=== PATIENT | male | born 1965 | race Two or more races ===

== ENCOUNTER 2019-02-23 15:01 | Emergency (ER) | payer SELFPAY ==
--- NOTE | 2019-02-23 15:36 | ER Document Report ---
ED Medical Screen (RME) - General Chief Complaint: Abdominal Pain Stated Complaint: BACK/ABDOMIN PAIN Time Seen by Provider: 02/23/19 15:31 Primary Care Provider: MARQUITA FONG [Primary Care Provider] - Follow up as needed Mode of Arrival: Ambulatory Information source: Patient Notes: 54-year-old male presents to the emergency department for right-sided flank pain right-sided pain for months. Patient reports he has been evaluated in [place] and been seen by a chiropractor he is also been evaluated by [facility]. He presents with labs from October. Denies past medical history of kidney stones. Speaks Czech but reports he understands South African. I have greeted and performed a rapid initial assessment of this patient. A comprehensive ED assessment and evaluation of the patient, analysis of test results and completion of the medical decision making process will be conducted by additional ED providers. Dictation of this chart was performed using voice recognition software; therefore, there may be some unintended grammatical errors. TRAVEL OUTSIDE OF THE [place] IN LAST 30 DAYS: No - Related Data Allergies/Adverse Reactions: No Known Allergies Allergy (Unverified 02/23/19 15:02) Physical Exam - Vital signs Vitals: Temp Pulse Resp BP Pulse Ox 99.1 F 89 18 157/90 H 96 02/23/19 15:14 02/23/19 15:14 02/23/19 15:14 02/23/19 15:14 02/23/19 15:14 Course - Vital Signs Vital signs: Temp Pulse Resp BP Pulse Ox 99.1 F 89 18 157/90 H 96 02/23/19 15:14 02/23/19 15:14 02/23/19 15:14 02/23/19 15:14 02/23/19 15:14 Doctor's Discharge - Discharge Referrals: MARQUITA FONG [Primary Care Provider] - Follow up as needed
[2019-02-23 15:56] LABS: ABSOLUTE BASOPHILS # (AUTO) 0.1 10^3/uL (0.0-0.2); ABSOLUTE EOSINOPHILS # (AUTO) 0.3 10^3/uL (0.0-0.6); ABSOLUTE LYMPHOCYTES (AUTO) 3.3 10^3/uL (0.5-4.7); ABSOLUTE MONOCYTES (AUTO) 0.4 10^3/uL (0.1-1.4); ABSOLUTE NEUT (AUTO) 4.3 10^3/uL (1.7-8.2); BASOPHILS % (AUTO) 0.6 % (0-2); EOSINOPHILS % (AUTO) 3.4 % (0-6); HEMATOCRIT 43.2 % (37.9-51.0); HEMOGLOBIN 15.2 g/dL (13.5-17.0); LYMPHOCYTES % (AUTO) 38.9 % (13-45); MEAN CORPUSCULAR HEMOGLOBIN 29.9 pg (27.0-33.4); MEAN CORPUSCULAR HGB CONC 35.3 g/dL (32.0-36.0); MEAN CORPUSCULAR VOLUME 85 fl (80-97); MONOCYTES % (AUTO) 5.3 % (3-13); PLATELET COUNT 335 10^3/uL (150-450); RED CELL DISTRIBUTION WIDTH 13.5 % (11.5-14.0); SEGMENTED NEUTROPHILS % (AUTO) 51.8 % (42-78); TOTAL CELLS COUNTED % (AUTO) 100 %; WHITE BLOOD COUNT 8.4 10^3/uL (4.0-10.5)
[2019-02-23 16:00] LABS: APPEARANCE,URINE CLEAR; BILIRUBIN,URINE NEGATIVE (NEGATIVE); COLOR,URINE YELLOW; GLUCOSE, URINE 150 mg/dL (NEGATIVE); KETONES,URINE NEGATIVE (NEGATIVE); LEUKOCYTE ESTERASE,URINE NEGATIVE (NEGATIVE); NITRITE,URINE NEGATIVE (NEGATIVE); PROTEIN,URINE NEGATIVE (NEGATIVE); URINE SPECIFIC GRAVITY 1.023; UROBILINOGEN,URINE NEGATIVE mg/dL (<2.0)
[2019-02-23 16:19] LABS: ALBUMIN 4.6 g/dL (3.5-5.0); ALKALINE PHOSPHATASE 114 U/L (38-126); ANION GAP 9 (5-19); ASPARTATE AMINO TRANSFERASE 51 U/L (17-59); BILIRUBIN,DIRECT 0.2 mg/dL (0.0-0.4); BILIRUBIN,TOTAL 0.5 mg/dL (0.2-1.3); BLOOD UREA NITROGEN 15 mg/dL (7-20); CALCIUM 9.9 mg/dL (8.4-10.2); CARBON DIOXIDE 27 mmol/L (22-30); CHLORIDE 101 mmol/L (98-107); GLUCOSE 194 mg/dL (75-110); POTASSIUM 4.3 mmol/L (3.6-5.0); TOTAL PROTEIN 7.7 g/dL (6.3-8.2)
--- NOTE | 2019-02-23 18:08 | ER Document Report ---
ED GI/ - General Chief Complaint: Abdominal Pain Stated Complaint: BACK/ABDOMIN PAIN Time Seen by Provider: 02/23/19 15:31 Primary Care Provider: MARQUITA FONG [NO LOCAL MD] - Follow up as needed Mode of Arrival: Ambulatory Information source: Patient Notes: 54-year-old male presented to ED for complaint of right-sided flank pain for about 2-1/2 months. He states he has been seen by a chiropractor [facility]. He states he had labs in October which everybody told were okay. He denies any history of injuries or kidney stones. He does speak Ecuadorean so I used [employer] satellite dish installer [id number] to do his assessment and history. Patient is alert oriented respirations regular and unlabored speaking in full sentences. TRAVEL OUTSIDE OF THE [place] IN LAST 30 DAYS: No - HPI Patient complains to provider of: Flank pain Onset: Other - 2-1/2 months Timing/Duration: Persistent Quality of pain: Achy, Dull Severity at maximum: Severe Severity in ED: Moderate Pain Level: 3 - Is good to help is Location: Right flank Associated symptoms: denies: Nausea, Vomiting Exacerbated by: Movement, Walking Relieved by: Denies Similar symptoms previously: Yes Recently seen / treated by doctor: Yes - Related Data Allergies/Adverse Reactions: No Known Allergies Allergy (Unverified 02/23/19 15:02) Past Medical History - General Information source: Patient - Social History Smoking Status: Never Smoker Frequency of alcohol use: None Drug Abuse: None Lives with: Family Family History: Reviewed & Not Pertinent Patient has suicidal ideation: No Patient has homicidal ideation: No - Past Medical History Cardiac Medical History: Reports: None Pulmonary Medical History: Reports: None EENT Medical History: Reports: None Neurological Medical History: Reports: None Endocrine Medical History: Reports: None Renal/ Medical History: Reports: None Malignancy Medical History: Reports None GI Medical History: Reports: None Musculoskeletal Medical History: Reports None Skin Medical History: Reports None Psychiatric Medical History: Reports: None Traumatic Medical History: Reports: None Infectious Medical History: Reports: None Surgical Hx: Negative Past Surgical History: Reports: None - Immunizations Immunizations up to date: Yes Hx Diphtheria, Pertussis, Tetanus Vaccination: Yes Review of Systems - Review of Systems Constitutional: No symptoms reported EENT: No symptoms reported Cardiovascular: No symptoms reported Respiratory: No symptoms reported Gastrointestinal: Abdominal pain Genitourinary: Flank pain Male Genitourinary: No symptoms reported Musculoskeletal: No symptoms reported Skin: No symptoms reported Hematologic/Lymphatic: No symptoms reported Neurological/Psychological: No symptoms reported Physical Exam - Vital signs Vitals: Temp Pulse Resp BP Pulse Ox 99.1 F 89 18 157/90 H 96 02/23/19 15:14 02/23/19 15:14 02/23/19 15:14 02/23/19 15:14 02/23/19 15:14 Interpretation: Normal - General General appearance: Appears well, Alert - HEENT Head: Normocephalic, Atraumatic Eyes: Normal Pupils: PERRL - Respiratory Respiratory status: No respiratory distress Chest status: Nontender Breath sounds: Normal Chest palpation: Normal - Cardiovascular Rhythm: Regular Heart sounds: Normal auscultation Murmur: No - Abdominal Inspection: Normal Distension: No distension Bowel sounds: Hyperactive Tenderness: Tender - ruq Organomegaly: No organomegaly - Back Back: Normal, Tender, CVA tenderness - right - Extremities General upper extremity: Normal inspection, Nontender, Normal color, Normal ROM, Normal temperature General lower extremity: Normal inspection, Nontender, Normal color, Normal ROM, Normal temperature, Normal weight bearing. No: Rock's sign - Neurological Neuro grossly intact: Yes Cognition: Normal Orientation: AAOx4 Tom Coma Scale Eye Opening: Spontaneous Marshall Coma Scale Verbal: Oriented Tom Coma Scale Motor: Obeys Commands Tom Coma Scale Total: 15 Speech: Normal Motor strength normal: LUE, RUE, LLE, RLE Sensory: Normal - Psychological Associated symptoms: Normal affect, Normal mood - Skin Skin Temperature: Warm Skin Moisture: Dry Skin Color: Normal Course - Re-evaluation Re-evalutation: 02/24/19 01:58 Using [employer] satellite dish installer to give patient results of labs and CT before he was discharged. There was no kidney stones. It is muscle pain. I did discuss his blood sugar and his need to follow-up with her primary doctor concerning his prashant vated blood sugar. He did verbalize understanding of need to change diet to decrease carb hydrates. He was discharged home after he verbalized understanding of instructions. - Vital Signs Vital signs: Temp Pulse Resp BP Pulse Ox 98.4 F 72 16 116/78 96 02/23/19 20:43 02/23/19 20:43 02/23/19 20:43 02/23/19 20:43 02/23/19 15:14 - Laboratory Result Diagrams: 02/23/19 15:45 02/23/19 15:45 Laboratory results interpreted by me: 02/23/19 02/23/19 02/23/19 15:45 15:45 17:30 Glucose 194 H Hemoglobin A1c % 6.3 H Urine Glucose (UA) 150 H - Diagnostic Test Radiology reviewed: Image reviewed, Reports reviewed Discharge - Discharge Clinical Impression: Right flank pain, chronic Condition: Stable Disposition: HOME, SELF-CARE Instructions: Acetaminophen, Diabetes (OM), Family Physicians / Practices, Flank Pain (OM), Use of [id number]-Gkybvao Ibuprofen ([facility]), Myalagia (Muscle Pain) (OM) Additional Instructions: Flank Pain We weren't able to prove an exact cause for your flank pain. Pain in the flank can be caused by a muscle strain or spasm. Sometimes a kidney stone causes pain, but can't be found on our tests. Infection in the kidney should be evident on a urine test. Early shingles can occasionally cause flank pain, without the rash that proves the diagnosis. On rare occasions, disease of the pancreas, aorta, spleen, or colon can create pain in the flank. At this time, there's no evidence of a dangerous condition, and it seems safe for you to be at home. If the pain goes away and does not come back, no further testing will be needed. If pain persists, or becomes more severe, we may need to repeat some tests or order additional new testing. Blood in the urine, urgency to urinate frequently, and pain that radiates to the groin can indicate a kidney stone. Fever may mean that the pain is due to infection, either of the kidney or the colon (diverticulitis). If your pain is early shingles, you should develop an eruption of blisters in the painful area within a few days. Call the doctor or return if you have pain that is spreading or becoming more severe, pain that does not resolve with time, fever, or any other new symptoms. Ibuprofen Ibuprofen is an excellent, safe drug for pain control. In addition, it has potent antiinflammatory effects which are beneficial, especially in the treatment of injuries, arthritis, or tendonitis. It's best to take ibuprofen with food. Persons with ulcer disease or allergy to aspirin should notify their physician of this before taking ibuprofen. Take the medication exactly as prescribed. Don't take additional doses unless instructed to do so by your doctor. If you develop wheezing, shortness of breath, hives, faintness, stomach pain, vomiting, or dark black stools, return for re-evaluation at once. Acetaminophen Acetaminophen may be taken for pain relief or fever control. It's much safer than aspirin, offering a wider range of "safe" dosages. It is safe during . Some brand names are Tylenol, Panadol, Datril, Anacin 3, Tempra, and Liquiprin. Acetaminophen can be repeated every four hours. The following are maximum recommended dosages: WEIGHT Dose Drops Elixir Chewable(80mg) (LBS.) drprs=droppers tsp=teaspoon 6 40 mg .4 ml (1/2) 6-11 80 mg .8 ml (full) 1/2 tsp 1 tab 12-16 120 mg 1 1/2 drprs 3/4 tsp 1 1/2 tabs 17-23 160 mg 2 drprs 1 tsp 2 tabs 24-30 240 mg 3 drprs 1 1/2 tsp 3 tabs 30-35 320 mg 2 tsp 4 tabs 36-41 360 mg 2 1/4 tsp 4 1/2 tabs 42-47 400 mg 2 1/2 tsp 5 tabs 48-53 480 mg 3 tsp 6 tabs 54-59 520 mg 3 1/4 tsp 6 1/2 tabs 60-64 560 mg 3 1/2 tsp 7 tabs 65-70 600 mg 3 3/4 tsp 7 1/2 tabs 71-76 640 mg 4 tsp 8 tabs 77-82 720 mg 4 1/2 tsp 9 tabs 83-88 800 mg 5 tsp 10 tabs >89 pounds or adults 650 mg to 900 mg Acetaminophen can be repeated every four hours. Maximum daily dose not to exceed 4000 mg. These maximum recommended dosages are slightly higher than the dosages written on the product container, but these dosages are very safe and well below the toxic dosage for acetaminophen. FOLLOW-UP CARE: If you have been referred to a physician for follow-up care, call the physicians office for an appointment as you were instructed or within the next two days. If you experience worsening or a significant change in your symptoms, notify the physician immediately or return to the Emergency Department at any time for re-evaluation. Referrals: LOCALMD,NO [NO LOCAL MD] - Follow up as needed Print Language: Ecuadorean
--- NOTE | 2019-02-23 19:08 | RADIOLOGY REPORT (SQ) ---
EXAM DESCRIPTION: U/S ABDOMEN LIMITED W/O DOP COMPLETED DATE/TIME: 02/23/2019 6:58 pm REASON FOR STUDY: rt upper quad pain COMPARISON: None. TECHNIQUE: Dynamic and static grayscale images acquired of the abdomen and recorded on PACS. Additio nal selected color Doppler and spectral images recorded. LIMITATIONS: None. FINDINGS: PANCREAS: Poorly seen. LIVER: Increased echogenicity. No masses. LIVER VASCULATURE: Normal directional flow of the main portal vein and hepatic veins. GALLBLADDER: No stones. Normal wall thickness. No pericholecystic fluid. ULTRASOUND-DETECTED ALFARO'S SIGN: Negative. INTRAHEPATIC DUCTS AND COMMON DUCT: CBD and intrahepatic ducts normal caliber. No filling defects. INFERIOR VENA CAVA: Normal flow. AORTA: No aneurysm. The proximal aorta is not seen. RIGHT KIDNEY: Normal size, 12.4 cm. Normal echogenicity. No solid or suspicious masses. No hydroneph rosis. No calcifications. PERITONEAL AND RIGHT PLEURAL SPACE: No ascites or effusions. OTHER: No other significant findings. IMPRESSION: Hepatic steatosis. Normal gallbladder. TECHNICAL DOCUMENTATION: JOB ID: [id number] [employer]- All Rights Reserved Reading location - IP/workstation name: [email or web address]
[2019-02-23 20:46] VITALS: BP 116/78
== END 2019-02-23 20:43 | disposition home or self-care (01) ==
LOC: ER 15:01
DX: M79.18 Myalgia, other site (principal); G89.29 Other chronic pain; R10.811 Right upper quadrant abdominal tenderness; R73.9 Hyperglycemia, unspecified
CPT/HCPCS: 36415; 76705; 80053; 81001; 83036; 83690; 85025; 99284

== ENCOUNTER 2019-11-04 15:00 | Emergency (ER) | payer SELFPAY ==
[2019-11-04 20:47] VITALS: BP 135/81
--- NOTE | 2019-11-04 21:07 | ER Document Report ---
HPI - HPI Time Seen by Provider: 11/04/19 20:25 Pain Level: Denies Notes: 54, patient presented to the emergency department with chief complaint of cough. Patient reports cough for the last 3 days. Denies any fever, shortness of breath, nausea, vomiting or diarrhea. He reports that he coughs so much that it makes his abdomen hurt. He denies any specific abdominal pain at this time. He does report that he travels weekly for work. He denies any sick contacts, d enies any exposure to any known COVID-19 positive patients. He resides in [facility]. He has not taken any medications for symptoms. - EENT EENT: DENIES: Sore Throat, Ear Pain, Eye problems - NEURO Neurology: DENIES: Headache, Weakness, Vision blurred, Dizzinesss / Vertigo - CARDIOVASCULAR Cardiovascular: DENIES: Chest pain - RESPIRATORY Respiratory: REPORTS: Coughing. DENIES: Trouble Breathing - GASTROINTESTINAL Gastrointestinal: REPORTS: Abdominal Pain - when coughing. DENIES: Black / Bloody Stools - URINARY Urinary: DENIES: Dysuria, Urgency, Frequency - MUSCULOSKELETAL Musculoskeletal: DENIES: Extremity pain Past Medical History - General Information source: Patient - Social History Smoking Status: Never Smoker Frequency of alcohol use: None Drug Abuse: None Family History: Reviewed & Not Pertinent Patient has homicidal ideation: No - Medical History Medical History: Negative Surgical Hx: Negative - Immunizations Immunizations up to date: Yes Hx Diphtheria, Pertussis, Tetanus Vaccination: Yes Vertical Provider Document - CONSTITUTIONAL Notes: PHYSICAL EXAMINATION: GENERAL: Well-appearing, well-nourished and in no acute distress. HEAD: Atraumatic, normocephalic. EYES: Pupils equal round and reactive to light, extraocular movements intact, sclera anicteric, conjunctiva are normal. ENT: Nares patent, oropharynx clear without exudates. Moist mucous membranes. NECK: Normal range of motion, supple without lymphadenopathy LUNGS: Breath sounds clear to auscultation bilaterally and equal. No wheezes rales or rhonchi. HEART: Regular rate and rhythm without murmurs ABDOMEN: Soft, nontender, nondistended abdomen. No guarding, no rebound. No masses appreciated. Musculoskeletal: Normal range of motion, no pitting or edema. No cyanosis. NEUROLOGICAL: Cranial nerves grossly intact. Normal speech, normal gait. Normal sensory, motor exams PSYCH: Normal mood, normal affect. SKIN: Warm, Dry, normal turgor, no rashes or lesions noted. - INFECTION CONTROL TRAVEL OUTSIDE OF THE [place] IN LAST 30 DAYS: No Course - Re-evaluation Re-evalutation: Patient appears well, nontoxic, vital signs within normal limits. Lung sounds clear and equal bilaterally. Patient will be started on Tessalon Perles and round of prednisone. Strict ED return precautions discussed to include development of fever, chest pain or shortness of breath. Patient verbalizes understanding and agreement with plan. Patient requesting work note. - Vital Signs Vital signs: Temp Pulse Resp BP Pulse Ox 98.7 F 87 18 135/81 H 93 11/04/19 20:38 11/04/19 20:38 11/04/19 20:38 11/04/19 20:38 11/04/19 20:38 Discharge - Discharge Clinical Impression: Cough Condition: Stable Disposition: HOME, SELF-CARE Additional Instructions: Take medicine as prescribed. Drink plenty of fluids. Tylenol for pain or fever. Return if worsening. Prescriptions: Benzonatate [Tessalon Perles 100 mg Capsule] 1 - 2 tab PO Q8HP PRN #30 capsule PRN Reason: Prednisone [Deltasone 20 mg Tablet] 3 tab PO DAILY 5 Days #15 tablet Forms: Return to Work
== END 2019-11-04 21:23 | disposition home or self-care (01) ==
LOC: ER 15:00
DX: R05 Cough (principal); R10.9 Unspecified abdominal pain
CPT/HCPCS: 99283

== ENCOUNTER 2019-11-12 13:53 | Inpatient (IN) | payer SELFPAY ==
--- NOTE | 2019-11-12 14:38 | RADIOLOGY REPORT (SQ) ---
EXAM DESCRIPTION: CHEST SINGLE VIEW IMAGES COMPLETED DATE/TIME: 11/12/2019 2:28 pm REASON FOR STUDY: cough COMPARISON: None. EXAM PARAMETERS: NUMBER OF VIEWS: One view. TECHNIQUE: Single frontal radiographic view of the chest acquired. RADIATION DOSE: NA LIMITATIONS: None. FINDINGS: LUNGS AND PLEURA: Low lung volumes limits the examination. Bilateral prominent interstit ial markings in the lungs may be on the basis of infiltrates. No pneumothorax or pleural effusion. MEDIASTINUM AND HILAR STRUCTURES: No masses. Contour normal. HEART AND VASCULAR STRUCTURES: Accentuation of the cardiomediastinal structures, maybe related to li mited degree of inspiration. Normal vasculature. BONES: No acute findings. HARDWARE: None in the chest. OTHER: No other significant finding. IMPRESSION: 1. Low lung volumes limits the examination. Mild prominent interstitial markings in th e lungs may represent infiltrates. Correlation suggested. TECHNICAL DOCUMENTATION: JOB ID: [id number] [employer]- All Rights Reserved Reading location - IP/workstation name: [email or web address]
[2019-11-12] MEDS ORDERED: CEFTRIAXONE 1 GM/D5W RTU 1 GM/50 ML RTUPB IV ONE (14:39)
[2019-11-12] MEDS ORDERED: AZITHROMYCIN INJ 500 MG VIAL IV ONE (14:39)
[2019-11-12] MEDS ORDERED: ACETAMINOPHEN 325 MG TABLET PO ONE (14:43)
--- NOTE | 2019-11-12 14:49 | ER Document Report ---
ED Respiratory Problem - General Chief Complaint: Cough Stated Complaint: COUGH Time Seen by Provider: 11/12/19 14:12 Mode of Arrival: Ambulatory Information source: Patient Notes: Patient presents with 11-day history of cough. Patient complains of abdominal tenderness with coughing only. Patient denies abdominal pain if he is not coughing. Patient denies any fever, nausea, vomiting or diarrhea. Patient does report multiple sick contacts at work that have upper respiratory symptoms. P atient initially presented with a low oxygen saturation and nursing staff placed patient on oxygen at 2 L and oxygen sat has now increased to 95% on oxygen. Patient denies any fever although presents today with a temperature of 101.9. TRAVEL OUTSIDE OF THE [place] IN LAST 30 DAYS: No - HPI Patient complains to provider of: Cough Onset: Other - 11 day Duration: Worse/persistent Quality of pain: Achy Pain Level: 1 Context: denies: Hx asthma, Hx CHF, Hx COPD, Recent immobilization, Recent surgery, Smoker Cough: Nonproductive Associated symptoms: Cough. 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 denies: Fever EENT: No symptoms reported. denies: Nose congestion, Throat pain Cardiovascular: No symptoms reported. denies: Chest pain Respiratory: Cough Gastrointestinal: Abdominal pain. denies: Vomiting Genitourinary: No symptoms reported Male Genitourinary: No symptoms reported Musculoskeletal: No symptoms reported Skin: No symptoms reported Hematologic/Lymphatic: No symptoms reported Neurological/Psychological: No symptoms reported Physical Exam - Vital signs Vitals: Temp Pulse Resp BP Pulse Ox 101.9 F H 80 20 129/82 H 93 11/12/19 13:53 11/12/19 13:53 11/12/19 13:53 11/12/19 13:53 11/12/19 13:53 - General General appearance: Alert In distress: Mild - HEENT Head: Normocephalic, Atraumatic Eyes: Normal Conjunctiva: Normal Nasal: Normal Mouth/Lips: Normal Mucous membranes: Normal Pharynx: Normal Neck: Normal, Supple. No: Lymphadenopathy - Respiratory Respiratory status: No: Labored Chest status: Pain with cough Breath sounds: Nonproductive cough, Rales. No: Rhonchi, Stridor Chest palpation: Normal - Cardiovascular Rhythm: Regular Heart sounds: S1 appreciated, S2 appreciated - Abdominal Inspection: Obese Distension: No distension Bowel sounds: Normal Tenderness: Tender - to the lateral sides with coughing only - Back Back: Normal, Nontender. No: CVA tenderness - Extremities General upper extremity: Normal inspection, Normal strength General lower extremity: Normal inspection, Normal strength - Neurological Neuro grossly intact: Yes Cognition: Normal Johnson Coma Scale Eye Opening: Spontaneous Johnson Coma Scale Verbal: Oriented Johnson Coma Scale Motor: Obeys Commands Johnson Coma Scale Total: 15 - Psychological Associated symptoms: Normal affect, Normal mood - Skin Skin Temperature: Warm Skin Moisture: Dry Skin Color: Normal Course - Re-evaluation Re-evalutation: 11/12/19 14:58 Patient's room air sat dropped to 90% when oxygen was taken off. RN encouraged routine ABG and then replaced the oxygen. Consulted with Dr. Bernabe regarding patient's presentation. X-ray reviewed, advises adding a BNP. Agrees with plan for likely admission once results are back. 11/12/19 17:23 Patient with bilateral pneumonia on chest x-ray with fever here today. No leukocytosis. Patient does present with symptoms worrisome for COVID at this time. Consulted with Dr. Garcia who does agree to accept patient. We are still awaiting rapid COVID test at this time. 11/12/19 19:55 - Vital Signs Vital signs: Temp Pulse Resp BP Pulse Ox 100.8 F H 80 25 H 115/66 95 11/12/19 16:31 11/12/19 13:53 11/12/19 18:01 11/12/19 18:00 11/12/19 18:01 - Laboratory Result Diagrams: 11/12/19 15:29 11/12/19 15:29 Laboratory results interpreted by me: 11/12/19 11/12/19 11/12/19 15:29 15:29 15:29 ESR 54 H D-Dimer 0.66 H Carbonic Acid ABG pH ABG pCO2 ABG pO2 Sodium 133.1 L Glucose 120 H ALT 90 H C-Reactive Protein 203.2 H Urine Protein Urine Glucose (UA) Urine Urobilinogen SARS-CoV-2 (PCR) 11/12/19 11/12/19 11/12/19 16:00 16:10 18:00 ESR D-Dimer Carbonic Acid 0.99 L ABG pH 7.46 H ABG pCO2 32.8 L ABG pO2 70.1 L Sodium Glucose ALT C-Reactive Protein Urine Protein 30 H Urine Glucose (UA) >=500 H Urine Urobilinogen 4.0 H SARS-CoV-2 (PCR) POSITIVE A* Labs- All tests 24 hr 11/12/19 11/12/19 11/12/19 15:29 15:29 15:29 WBC 9.8 RBC 4.86 Hgb 14.3 Hct 41.5 MCV 85 MCH 29.4 MCHC 34.5 RDW 13.4 Plt Count 369 Lymph % (Auto) Not Reportable [place] % (Auto) Not Reportable Eos % (Auto) Not Reportable Baso % (Auto) Not Reportable Absolute Neuts (auto) Not Reportable Absolute Lymphs (auto) Not Reportable Absolute Monos (auto) Not Reportable Absolute Eos (auto) Not Reportable Absolute Basos (auto) Not Reportable Total Counted 100 Seg Neutrophils % Not Reportable Seg Neuts % (Manual) 73 Lymphocytes % (Manual) 20 Atypical Lymphs % 2 Monocytes % (Manual) 4 Eosinophils % (Manual) 1 Basophils % (Manual) 0 Abs Neuts (Manual) 7.2 Abs Lymphs (Manual) 2.2 Abs Monocytes (Manual) 0.4 Absolute Eos (Manual) 0.1 Abs Basophils (Manual) 0.0 Toxic Granulation SLIGHT Platelet Comment ADEQUATE Polychromasia SLIGHT Carbonic Acid HCO3/H2CO3 Ratio ABG pH ABG pCO2 ABG pO2 ABG HCO3 ABG Total CO2 ABG O2 Saturation ABG Base Excess FiO2 Sodium 133.1 L Potassium 4.2 Chloride 100 Carbon Dioxide 26 Anion Gap 7 BUN 16 Creatinine 0.86 Est GFR ( Amer) > 60 Est GFR (MDRD) Non-Af > 60 Glucose 120 H Lactic Acid Calcium 8.8 Total Bilirubin 1.0 Direct Bilirubin 0.1 Neonat Total Bilirubin Not Reportable Neonat Direct Bilirubin Not Reportable Neonat Indirect Bili Not Reportable AST 55 ALT 90 H Alkaline Phosphatase 90 C-Reactive Protein 203.2 H NT-Pro-B Natriuret Pep 50 Total Protein 7.0 Albumin 3.7 11/12/19 11/12/19 11/12/19 15:29 15:29 16:10 WBC RBC Hgb Hct MCV MCH MCHC RDW Plt Count Lymph % (Auto) [place] % (Auto) Eos % (Auto) Baso % (Auto) Absolute Neuts (auto) Absolute Lymphs (auto) Absolute Monos (auto) Absolute Eos (auto) Absolute Basos (auto) Total Counted Seg Neutrophils % Seg Neuts % (Manual) Lymphocytes % (Manual) Atypical Lymphs % Monocytes % (Manual) Eosinophils % (Manual) Basophils % (Manual) Abs Neuts (Manual) Abs Lymphs (Manual) Abs Monocytes (Manual) Absolute Eos (Manual) Abs Basophils (Manual) Toxic Granulation Platelet Comment Polychromasia Carbonic Acid Cancelled 0.99 L HCO3/H2CO3 Ratio Cancelled 22:1 ABG pH Cancelled 7.46 H ABG pCO2 Cancelled 32.8 L ABG pO2 Cancelled 70.1 L ABG HCO3 Cancelled 22.6 ABG Total CO2 Cancelled 23.7 ABG O2 Saturation Cancelled 95.0 ABG Base Excess Cancelled -0.4 FiO2 Cancelled ROOM AIR Sodium Potassium Chloride Carbon Dioxide Anion Gap BUN Creatinine Est GFR ( Amer) Est GFR (MDRD) Non-Af Glucose Lactic Acid 1.5 Calcium Total Bilirubin Direct Bilirubin Neonat Total Bilirubin Neonat Direct Bilirubin Neonat Indirect Bili AST ALT Alkaline Phosphatase C-Reactive Protein NT-Pro-B Natriuret Pep Total Protein Albumin - Diagnostic Test Radiology reviewed: Image reviewed, Reports reviewed Discharge - Discharge Clinical Impression: Fever Qualifiers: Fever type: unspecified Qualified Code(s): R50.9 - Fever, unspecified Pneumonia Qualifiers: Pneumonia type: due to unspecified organism Laterality: bilateral Lung location: unspecified part of lung Qualified Code(s): J18.9 - Pneumonia, unspecified organism Condition: Fair Disposition: ADMITTED INPATIENT Admitting Provider: Radha (Hospitalist)
[2019-11-12 15:45] LABS: HEMATOCRIT 41.5 % (37.9-51.0); HEMOGLOBIN 14.3 g/dL (13.5-17.0); MEAN CORPUSCULAR HEMOGLOBIN 29.4 pg (27.0-33.4); MEAN CORPUSCULAR HGB CONC 34.5 g/dL (32.0-36.0); MEAN CORPUSCULAR VOLUME 85 fl (80-97); PLATELET COUNT 369 10^3/uL (150-450); RED BLOOD COUNT 4.86 10^6/uL (4.35-5.55); RED CELL DISTRIBUTION WIDTH 13.4 % (11.5-14.0); WHITE BLOOD COUNT 9.8 10^3/uL (4.0-10.5)
[2019-11-12 16:07] LABS: ABSOLUTE LYMPHOCYTES# (MANUAL) 2.2 10^3/uL (0.5-4.7); ABSOLUTE MONOCYTES # (MANUAL) 0.4 10^3/uL (0.1-1.4); ALBUMIN 3.7 g/dL (3.5-5.0); ALKALINE PHOSPHATASE 90 U/L (38-126); ANION GAP 7 (5-19); ASPARTATE AMINO TRANSFERASE 55 U/L (17-59); BASOPHILS % (MANUAL) 0 % (0-2); BILIRUBIN,DIRECT 0.1 mg/dL (0.0-0.4); BLOOD UREA NITROGEN 16 mg/dL (7-20); CALCIUM 8.8 mg/dL (8.4-10.2); CARBON DIOXIDE 26 mmol/L (22-30); CHLORIDE 100 mmol/L (98-107); EOSINOPHILS % (MANUAL) 1 % (0-6); GLUCOSE 120 mg/dL (75-110); LYMPHOCYTES % (MANUAL) 20 % (13-45); MONOCYTES % (MANUAL) 4 % (3-13); POTASSIUM 4.2 mmol/L (3.6-5.0); SEGMENTED NEUTROPHILS % (MAN) 73 % (42-78); TOTAL CELLS COUNTED 100
[2019-11-12 16:11] LABS: PLATELET COMMENT ADEQUATE; POLYCHROMASIA SLIGHT
[2019-11-12 16:12] LABS: TOXIC GRANULATION SLIGHT
[2019-11-12 16:20] LABS: C-REACTIVE PROTEIN 203.2 mg/L (<10.0)
[2019-11-12 16:27] LABS: ARTERIAL BLOOD BASE EXCESS -0.4 mmol/L; ARTERIAL BLOOD FIO2 ROOM AIR; ARTERIAL BLOOD H2CO3 0.99 mmol/L (1.05-1.35); ARTERIAL BLOOD HCO3 22.6 mmol/L (20-24); ARTERIAL BLOOD PCO2 32.8 mmHg (35-45); ARTERIAL BLOOD PH 7.46 (7.35-7.45); ARTERIAL BLOOD PO2 70.1 mmHg (80-100); ARTERIAL BLOOD TOTAL CO2 23.7 mmol/L (23-27)
[2019-11-12] MEDS ORDERED: ACETAMINOPHEN 325 MG TABLET PO PRN (17:55)
[2019-11-12] MEDS ORDERED: ONDANSETRON HCL INJ/PF 4 MG/2 ML SDV IV PRN (17:55)
[2019-11-12] MEDS ORDERED: ALBUTEROL SULFATE HFA (90 MCG/PUFF) 8 GM MDI IH PRN (18:08)
[2019-11-12] MEDS ORDERED: ALBUTEROL SULFATE HFA (90 MCG/PUFF) 200 PUFF/8.5 GM MDI IH PRN (18:21)
--- NOTE | 2019-11-12 18:25 | PDOC H&P ---
History of Present Illness Patient complains of: Cough History of Present Illness: URSULA CAN is a 54 year old male with no significant past medical history who presents to the hospital for progressive cough and shortness of breath. His cough is nonproductive. It is persisted for the past week. He was initially in the hospital ER and was prescribed prednisone and benzo Roe a few days ago. No coronavirus test was done at that time. 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 He admits to exposure to people who had been sick with respiratory symptoms. However he does not know if any of them had COVID-19. He denies any chest pain at this time. Came to the hospital because of unrelenting cough and increased shortness of breath. Past Medical History Medical History: None Pulmonary Medical History: Denies: Asthma, Chronic Obstructive Pulmonary Disease (COPD) Past Surgical History Past Surgical History: Reports: None Social History Information Source: Patient Smoking Status: Never Smoker Frequency of Alcohol Use: None Hx Recreational Drug Use: No - Advance Directive Resuscitation Status: Full Code Family History Family History: Hypertension Parental Family History Reviewed: Yes Children Family History Reviewed: Unknown Sibling(s) Family History Reviewed.: Unknown Medication/Allergy Home Medications: Benzonatate [Tessalon Perles 100 mg Capsule] 1 - 2 tab PO Q8HP PRN #30 capsule 11/04/19 Prednisone [Deltasone 20 mg Tablet] 3 tab PO DAILY 5 Days #15 tablet 11/04/19 Allergies/Adverse Reactions: No Known Allergies Allergy (Verified 11/12/19 14:16) Review of Systems Constitutional: PRESENT: fever(s). ABSENT: chills, fatigue Eyes: ABSENT: visual disturbances Nose, Mouth, and Throat: ABSENT: headache(s) Cardiovascular: ABSENT: chest pain Respiratory: PRESENT: cough, dyspnea. ABSENT: sputum Gastrointestinal: PRESENT: abdominal pain. ABSENT: vomiting Genitourinary: ABSENT: difficulty urinating Integumentary: ABSENT: diaphoresis Neurological: ABSENT: dizziness Endocrine: ABSENT: polyuria Allergic/Immunologic: PRESENT: other - Admits to rhinorrhea Physical Exam Vital Signs: Temp Pulse Resp BP Pulse Ox 100.8 F H 80 18 119/54 L 95 11/12/19 16:31 11/12/19 13:53 11/12/19 17:01 11/12/19 17:01 11/12/19 17:01 Intake & Output 11/11/19 11/12/19 11/13/19 06:59 06:59 06:59 Weight 127.006 kg General appearance: PRESENT: no acute distress, cooperative Head exam: PRESENT: normocephalic Neck exam: ABSENT: JVD Respiratory exam: PRESENT: crackles, unlabored. ABSENT: tachypnea, wheezes Cardiovascular exam: PRESENT: RRR, +S1, +S2. ABSENT: tachycardia GI/Abdominal exam: PRESENT: soft. ABSENT: rebound, rigid, tenderness Extremities exam: ABSENT: calf tenderness, pedal edema Neurological exam: PRESENT: alert, awake, oriented to person, oriented to place, oriented to time Psychiatric exam: ABSENT: agitated, anxious Focused psych exam: ABSENT: pressured speech Skin exam: ABSENT: jaundice Results Laboratory Results: 11/12/19 15:29 11/12/19 15:29 11/12/19 11/12/19 11/12/19 15:29 15:29 15:29 WBC 9.8 RBC 4.86 Hgb 14.3 Hct 41.5 MCV 85 MCH 29.4 MCHC 34.5 RDW 13.4 Plt Count 369 Seg Neutrophils % Not Reportable Carbonic Acid Cancelled HCO3/H2CO3 Ratio Cancelled ABG pH Cancelled ABG pCO2 Cancelled ABG pO2 Cancelled ABG HCO3 Cancelled ABG O2 Saturation Cancelled ABG Base Excess Cancelled FiO2 Cancelled Sodium 133.1 L Potassium 4.2 Chloride 100 Carbon Dioxide 26 Anion Gap 7 BUN 16 Creatinine 0.86 Est GFR ( Amer) > 60 Glucose 120 H Lactic Acid Calcium 8.8 Total Bilirubin 1.0 AST 55 Alkaline Phosphatase 90 C-Reactive Protein 203.2 H Total Protein 7.0 Albumin 3.7 11/12/19 11/12/19 15:29 16:10 WBC RBC Hgb Hct MCV MCH MCHC RDW Plt Count Seg Neutrophils % Carbonic Acid 0.99 L HCO3/H2CO3 Ratio 22:1 ABG pH 7.46 H ABG pCO2 32.8 L ABG pO2 70.1 L ABG HCO3 22.6 ABG O2 Saturation 95.0 ABG Base Excess -0.4 FiO2 ROOM AIR Sodium Potassium Chloride Carbon Dioxide Anion Gap BUN Creatinine Est GFR ( Amer) Glucose Lactic Acid 1.5 Calcium Total Bilirubin AST Alkaline Phosphatase C-Reactive Protein Total Protein Albumin 06/05/20 15:29 NT-Pro-B Natriuret Pep 50 Impressions: Chest X-Ray 11/12/19 14:12 IMPRESSION: 1. Low lung volumes limits the examination. Mild prominent interstitial markings in the lungs may represent infiltrates. Correlation suggested. Assessment and Plan - Diagnosis (1) Pneumonia due to COVID-19 virus Is this a current diagnosis for this admission?: Yes Plan: Chest x-ray showing interstitial opacities consistent with viral pneumonia. BNP negative. COVID-[address] place patient on azithromycin IV. Received ceftriaxone in the ER. Check influenza. We will place patient on vitamin C, zinc, vitamin D supplements. D-dimer, ferritin, CRP and ESR ordered for baseline. Robitussin-DM, albuterol as needed. Tylenol as needed pain and fever. (2) Acute respiratory failure with hypoxia Is this a current diagnosis for this admission?: Yes Plan: We will place patient on supplemental oxygen. Goal to maintain sats over 90%. Right now patient is doing well on 2 L NC. We will continue to monitor. - Time Time Spent with patient: 35 or more minutes
[2019-11-12] MEDS ORDERED: NORMAL SALINE 1000 ML 1,000 ML IV PRN (18:26)
[2019-11-12 18:50] LABS: APPEARANCE,URINE CLEAR; BILIRUBIN,URINE NEGATIVE (NEGATIVE); COLOR,URINE YELLOW; GLUCOSE, URINE >=500 mg/dL (NEGATIVE); KETONES,URINE NEGATIVE (NEGATIVE); LEUKOCYTE ESTERASE,URINE NEGATIVE (NEGATIVE); NITRITE,URINE NEGATIVE (NEGATIVE); PROTEIN,URINE 30 mg/dL (NEGATIVE); URINE SPECIFIC GRAVITY 1.015
[2019-11-12 19:08] LABS: A TYPE INFLUENZA AG NEGATIVE (NEGATIVE); B INFLUENZA AG NEGATIVE (NEGATIVE)
[2019-11-12] MEDS: ASCORBIC ACID 500 MG TABLET PO SCH (19:50)
[2019-11-12] MEDS: ENOXAPARIN SODIUM INJ 40 MG/0.4 ML DISP.SYRIN SUBCUT SCH (19:50)
[2019-11-12] MEDS: ZINC SULFATE 220 MG CAPSULE PO SCH (19:50)
[2019-11-12] MEDS: GUAIFENESIN 600 MG TABLET.SA PO SCH (21:14)
[2019-11-12] MEDS: MELATONIN 5 MG TABLET PO SCH (21:22)
[2019-11-13 06:53] LABS: HEMOGLOBIN 13.7 g/dL (13.5-17.0); MEAN CORPUSCULAR HEMOGLOBIN 29.9 pg (27.0-33.4); MEAN CORPUSCULAR HGB CONC 35.2 g/dL (32.0-36.0); MEAN CORPUSCULAR VOLUME 85 fl (80-97); PLATELET COUNT 343 10^3/uL (150-450); RED BLOOD COUNT 4.59 10^6/uL (4.35-5.55); RED CELL DISTRIBUTION WIDTH 13.6 % (11.5-14.0); WHITE BLOOD COUNT 10.6 10^3/uL (4.0-10.5)
[2019-11-13 07:10] LABS: ALBUMIN 3.2 g/dL (3.5-5.0); ALKALINE PHOSPHATASE 88 U/L (38-126); ANION GAP 6 (5-19); ASPARTATE AMINO TRANSFERASE 39 U/L (17-59); BILIRUBIN,TOTAL 0.7 mg/dL (0.2-1.3); BLOOD UREA NITROGEN 15 mg/dL (7-20); CALCIUM 8.3 mg/dL (8.4-10.2); CARBON DIOXIDE 25 mmol/L (22-30); CHLORIDE 103 mmol/L (98-107); GLUCOSE 121 mg/dL (75-110); PHOSPHORUS 2.6 mg/dL (2.5-4.5); POTASSIUM 4.6 mmol/L (3.6-5.0); TOTAL PROTEIN 6.4 g/dL (6.3-8.2)
[2019-11-13 07:39] LABS: ABSOLUTE LYMPHOCYTES# (MANUAL) 3.1 10^3/uL (0.5-4.7); ABSOLUTE MONOCYTES # (MANUAL) 0.6 10^3/uL (0.1-1.4); BASOPHILS % (MANUAL) 0 % (0-2); EOSINOPHILS % (MANUAL) 1 % (0-6); LYMPHOCYTES % (MANUAL) 29 % (13-45); MONOCYTES % (MANUAL) 6 % (3-13); SEGMENTED NEUTROPHILS % (MAN) 64 % (42-78); TOTAL CELLS COUNTED 100
[2019-11-13 07:44] LABS: PLATELET COMMENT ADEQUATE; POLYCHROMASIA SLIGHT
[2019-11-13] MEDS: CHOLECALCIFEROL (D3) 1,000 UNIT (25 MCG) TABLET PO SCH (09:10)
[2019-11-13] MEDS: ZINC SULFATE 220 MG CAPSULE PO SCH (09:10)
[2019-11-13] MEDS: ENOXAPARIN SODIUM INJ 40 MG/0.4 ML DISP.SYRIN SUBCUT SCH (09:10)
[2019-11-13] MEDS: ASCORBIC ACID 500 MG TABLET PO SCH (09:10)
[2019-11-13] MEDS: GUAIFENESIN 600 MG TABLET.SA PO SCH ×2 (09:10→21:25)
[2019-11-13] MEDS: AZITHROMYCIN 500 MG in DEXTROSE 5%-WATER 250 ML IV SCH (11:38)
[2019-11-13] MEDS: GUAIFENESIN/D-METHORPHAN (200-20 MG) SYRUP 10 ML PO PRN ×2 (11:39→18:30)
[2019-11-13] MEDS ORDERED: AZITHROMYCIN INJ 500 MG VIAL IV SCH (12:00)
--- NOTE | 2019-11-13 13:27 | PDOC PROGRESS REPORT ---
Subjective Progress Note for:: 11/13/19 Subjective:: Patient is doing well today and wondering when he will be able to go home. He is still having some cough. States that cough feels better. His fever curve seems to have improved. Reason For Visit: ATYPICAL PNEUMONIA,FEVER Physical Exam Vital Signs: Temp Pulse Resp BP Pulse Ox 99.3 F 78 16 139/70 H 93 11/13/19 09:40 11/13/19 09:40 11/13/19 09:40 11/13/19 09:40 11/13/19 09:40 Intake & Output 11/12/19 11/13/19 11/14/19 06:59 06:59 06:59 Intake Total 1400 480 Output Total 1250 Balance 150 480 Weight 127.006 kg General appearance: PRESENT: no acute distress, cooperative Respiratory exam: PRESENT: unlabored. ABSENT: tachypnea Cardiovascular exam: PRESENT: RRR. ABSENT: bradycardia, irregular rhythm, tachycardia Musculoskeletal exam: PRESENT: ambulatory Neurological exam: PRESENT: alert, awake, oriented to person, oriented to place, oriented to time Psychiatric exam: ABSENT: agitated Focused psych exam: ABSENT: delusional, euphoric, internal stimuli, paranoid, pressured speech Results Laboratory Results: 11/13/19 06:30 11/13/19 06:30 11/12/19 11/12/19 11/12/19 15:29 15:29 15:29 WBC 9.8 RBC 4.86 Hgb 14.3 Hct 41.5 MCV 85 MCH 29.4 MCHC 34.5 RDW 13.4 Plt Count 369 Seg Neutrophils % Not Reportable Carbonic Acid Cancelled HCO3/H2CO3 Ratio Cancelled ABG pH Cancelled ABG pCO2 Cancelled ABG pO2 Cancelled ABG HCO3 Cancelled ABG O2 Saturation Cancelled ABG Base Excess Cancelled FiO2 Cancelled Sodium 133.1 L Potassium 4.2 Chloride 100 Carbon Dioxide 26 Anion Gap 7 BUN 16 Creatinine 0.86 Est GFR ( Amer) > 60 Glucose 120 H Lactic Acid Calcium 8.8 Phosphorus Magnesium Ferritin Total Bilirubin 1.0 AST 55 Alkaline Phosphatase 90 C-Reactive Protein 203.2 H Total Protein 7.0 Albumin 3.7 Urine Color Urine Appearance Urine pH Ur Specific [place] Urine Protein Urine Glucose (UA) Urine Ketones Urine Blood Urine Nitrite Ur Leukocyte Esterase Urine WBC (Auto) Urine RBC (Auto) 11/12/19 11/12/19 11/12/19 15:29 15:29 16:10 WBC RBC Hgb Hct MCV MCH MCHC RDW Plt Count Seg Neutrophils % Carbonic Acid 0.99 L HCO3/H2CO3 Ratio 22:1 ABG pH 7.46 H ABG pCO2 32.8 L ABG pO2 70.1 L ABG HCO3 22.6 ABG O2 Saturation 95.0 ABG Base Excess -0.4 FiO2 ROOM AIR Sodium Potassium Chloride Carbon Dioxide Anion Gap BUN Creatinine Est GFR ( Amer) Glucose Lactic Acid 1.5 Calcium Phosphorus Magnesium Ferritin 184.00 Total Bilirubin AST Alkaline Phosphatase C-Reactive Protein Cancelled Total Protein Albumin Urine Color Urine Appearance Urine pH Ur Specific [place] Urine Protein Urine Glucose (UA) Urine Ketones Urine Blood Urine Nitrite Ur Leukocyte Esterase Urine WBC (Auto) Urine RBC (Auto) 11/12/19 11/13/19 11/13/19 18:00 06:30 06:30 WBC 10.6 H RBC 4.59 Hgb 13.7 Hct 39.0 MCV 85 MCH 29.9 MCHC 35.2 RDW 13.6 Plt Count 343 Seg Neutrophils % Not Reportable Carbonic Acid HCO3/H2CO3 Ratio ABG pH ABG pCO2 ABG pO2 ABG HCO3 ABG O2 Saturation ABG Base Excess FiO2 Sodium 134.3 L Potassium 4.6 Chloride 103 Carbon Dioxide 25 Anion Gap 6 BUN 15 Creatinine 0.68 Est GFR ( Amer) > 60 Glucose 121 H Lactic Acid Calcium 8.3 L Phosphorus 2.6 Magnesium 2.2 Ferritin Total Bilirubin 0.7 AST 39 Alkaline Phosphatase 88 C-Reactive Protein Total Protein 6.4 Albumin 3.2 L Urine Color YELLOW Urine Appearance CLEAR Urine pH 6.0 Ur Specific [place] 1.015 Urine Protein 30 H Urine Glucose (UA) >=500 H Urine Ketones NEGATIVE Urine Blood NEGATIVE Urine Nitrite NEGATIVE Ur Leukocyte Esterase NEGATIVE Urine WBC (Auto) 2 Urine RBC (Auto) 0 11/12/19 15:29 NT-Pro-B Natriuret Pep 50 Impressions: Chest X-Ray 11/12/19 14:12 IMPRESSION: 1. Low lung volumes limits the examination. Mild prominent interstitial markings in the lungs may represent infiltrates. Correlation suggested. Assessment and Plan - Diagnosis (1) Pneumonia due to COVID-19 virus Is this a current diagnosis for this admission?: Yes Plan: Chest x-ray showing interstitial opacities consistent with viral pneumonia. BNP negative. Influenza negative. COVID-19 rapid test positive. Continue azithromycin IV. Continue vitamin C, zinc, vitamin D supplements. D-dimer, ferritin, CRP and ESR baseline obtained. Robitussin-DM, albuterol as needed. Tylenol as needed pain and fever. Fever seems to be improving. Currently stable. Continue to maintain in isolation. I have instructed patient to contact his family and any recent contacts to inform them of his diagnosis so that they can get tested and place themselves on quarantine. (2) Acute respiratory failure with hypoxia Is this a current diagnosis for this admission?: Yes Plan: We were able to wean patient completely off oxygen supplementation. Patient's SPO2 is currently doing well on room air. Will monitor SPO2 through today. Will put on continuous pulse ox for ease of monitoring given isolation. - Time Time Spent with patient: 15-24 minutes
--- NOTE | 2019-11-13 20:46 | EKG REPORT ---
SEVERITY:- BORDERLINE ECG - SINUS RHYTHM BORDERLINE T ABNORMALITIES, ANT-LAT LEADS : Confirmed by: Dorinda Burt 13-Nov-2019 20:45:19
[2019-11-13] MEDS: MELATONIN 5 MG TABLET PO SCH (21:25)
[2019-11-14] MEDS: ASCORBIC ACID 500 MG TABLET PO SCH (09:00)
[2019-11-14] MEDS: ZINC SULFATE 220 MG CAPSULE PO SCH (09:00)
[2019-11-14] MEDS: ENOXAPARIN SODIUM INJ 40 MG/0.4 ML DISP.SYRIN SUBCUT SCH (09:01)
[2019-11-14] MEDS: GUAIFENESIN 600 MG TABLET.SA PO SCH (09:01)
[2019-11-14] MEDS: CHOLECALCIFEROL (D3) 1,000 UNIT (25 MCG) TABLET PO SCH (09:03)
[2019-11-14] MEDS: AZITHROMYCIN 500 MG in DEXTROSE 5%-WATER 250 ML IV SCH (11:37)
--- NOTE | 2019-11-14 12:10 | PDOC DISCHARGE SUMMARY ---
Impression - Admit/DC Date/PCP Admission Date/Primary Care Provider: 11/12/19 18:04 Discharge Date: 11/14/19 - Discharge Diagnosis (1) Pneumonia due to COVID-19 virus Is this a current diagnosis for this admission?: Yes (2) Acute respiratory failure with hypoxia Is this a current diagnosis for this admission?: Yes (3) Acute bacterial bronchitis Is this a current diagnosis for this admission?: Yes - Additional Information Resuscitation Status: Full Code Discharge Diet: Regular Referrals: T [Outside] (PATIENT WILL BE FOLLOWED BY [facility] DEPT. UPON D/C PATIENT WILL BE ON SELF QUARANTINE UNTIL CLEARED BY HEALTH DEPT. ONCE CLEARED PATIENT MAY THEN SCHEDULE AN APPT. WITH PRIMARY CARE PROVIDER.) Prescriptions: Guaifenesin [Mucinex Sr 600 mg Tablet.sa] 600 mg PO Q12 14 Days tablet.sa Albuterol Sulfate [Proair HFA Inhalation Aerosol 8.5 gm MDI] 2 puff IH Q6HP PRN #1 inhaler PRN Reason: Ascorbic Acid [Vitamin C 500 mg Tablet] 2,000 mg PO DAILY 10 Days tablet Cholecalciferol (Vitamin D3) [Vitamin D3 1000 Unit Tablet] 2,000 unit PO DAILY 14 Days tablet Zinc Sulfate [Zinc-220 Capsule] 220 mg PO DAILY 10 Days capsule Azithromycin [Zithromax 250 mg Tablet] 250 mg PO DAILY #4 tablet Home Medications: Albuterol Sulfate [Proair HFA Inhalation Aerosol 8.5 gm MDI] 2 puff IH Q6HP PRN #1 inhaler 11/14/19 Ascorbic Acid [Vitamin C 500 mg Tablet] 2,000 mg PO DAILY 10 Days tablet 11/14/19 Azithromycin [Zithromax 250 mg Tablet] 250 mg PO DAILY #4 tablet 11/14/19 Cholecalciferol (Vitamin D3) [Vitamin D3 1000 Unit Tablet] 2,000 unit PO DAILY 14 Days tablet 11/14/19 Guaifenesin [Mucinex Sr 600 mg Tablet.sa] 600 mg PO Q12 14 Days tablet.sa 11/14/19 Zinc Sulfate [Zinc-220 Capsule] 220 mg PO DAILY 10 Days capsule 11/14/19 History of Present Illiness History of Present Illness: URSULA CAN is a 54 year old male with no significant past medical history who presents to the hospital for progressive cough and shortness of breath. His cough is nonproductive. It is persisted for the past week. He was initially in the hospital ER and was prescribed prednisone and benzo Roe a few days ago. No coronavirus test was done at that time. 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 He admits to exposure to people who had been sick with respiratory symptoms. However he does not know if any of them had COVID-19. He denies any chest pain at this time. Came to the hospital because of unrelenting cough and increased shortness of breath. Hospital Course Hospital Course: Patient was admitted to the hospital for acute hypoxic respiratory failure with SPO2 of 89% on room air upon presentation. Patient was febrile at the time chest x-ray revealed bilateral interstitial opacities consistent with viral pneumonia. COVID-19 test was positive. He likely obtain this via work which he performs every week at [place] and has had sick contacts at work. Patient was started on supportive treatment for pneumonia secondary to COVID-19 as well as azithromycin, inhalers, expectorants and vitamin and zinc supplements. Patient was able to be weaned off oxygen the next day. Yesterday and today patient has been on room air and his SPO2 has been around 94% and above. Sputum culture also positive for E. coli which lab has notified me is pansensitive and also sensitive to azithromycin. Patient endorses improvement of his symptoms states that he feels a lot better. He has been informed of his diagnosis and advised to stay home he self-isolation as well as to notify his recent contacts so that they will get tested and self quarrantine. Health department has been notified by staff. Patient is being discharged in safe condition to continue azithromycin and supplements as well as an albuterol inhaler. Physical Exam Vital Signs: Temp Pulse Resp BP Pulse Ox 98.3 F 73 20 127/75 H 94 11/14/19 07:34 11/14/19 07:34 11/14/19 07:34 11/14/19 07:34 11/14/19 07:34 Intake & Output 11/13/19 11/14/19 11/15/19 06:59 06:59 06:59 Intake Total 1400 2050 Output Total 1250 700 Balance 150 1350 Weight 127.006 kg General appearance: PRESENT: no acute distress, cooperative Neurological exam: PRESENT: alert, awake Results Laboratory Results: WBC 10.6 10^3/uL (4.0-10.5) H 11/13/19 06:30 RBC 4.59 10^6/uL (4.35-5.55) 11/13/19 06:30 Hgb 13.7 g/dL (13.5-17.0) 11/13/19 06:30 Hct 39.0 % (37.9-51.0) 11/13/19 06:30 MCV 85 fl (80-97) 11/13/19 06:30 MCH 29.9 pg (27.0-33.4) 11/13/19 06:30 MCHC 35.2 g/dL (32.0-36.0) 11/13/19 06:30 RDW 13.6 % (11.5-14.0) 11/13/19 06:30 Plt Count 343 10^3/uL (150-450) 11/13/19 06:30 Lymph % (Auto) Not Reportable 11/13/19 06:30 [place] % (Auto) Not Reportable 11/13/19 06:30 Eos % (Auto) Not Reportable 11/13/19 06:30 Baso % (Auto) Not Reportable 11/13/19 06:30 Absolute Neuts (auto) Not Reportable 11/13/19 06:30 Absolute Lymphs (auto) Not Reportable 11/13/19 06:30 Absolute Monos (auto) Not Reportable 11/13/19 06:30 Absolute Eos (auto) Not Reportable 11/13/19 06:30 Absolute Basos (auto) Not Reportable 11/13/19 06:30 Total Counted 100 11/13/19 06:30 Seg Neutrophils % Not Reportable 11/13/19 06:30 Seg Neuts % (Manual) 64 % (42-78) 11/13/19 06:30 Lymphocytes % (Manual) 29 % (13-45) 11/13/19 06:30 Atypical Lymphs % 2 % (0) 11/12/19 15:29 Monocytes % (Manual) 6 % (3-13) 11/13/19 06:30 Eosinophils % (Manual) 1 % (0-6) 11/13/19 06:30 Basophils % (Manual) 0 % (0-2) 11/13/19 06:30 Abs Neuts (Manual) 6.8 10^3/uL (1.7-8.2) 11/13/19 06:30 Abs Lymphs (Manual) 3.1 10^3/uL (0.5-4.7) 11/13/19 06:30 Abs Monocytes (Manual) 0.6 10^3/uL (0.1-1.4) 11/13/19 06:30 Absolute Eos (Manual) 0.1 10^3/uL (0.0-0.6) 11/13/19 06:30 Abs Basophils (Manual) 0.0 10^3/uL (0.0-0.2) 11/13/19 06:30 Toxic Granulation SLIGHT 11/12/19 15:29 Platelet Comment ADEQUATE 11/13/19 06:30 Polychromasia SLIGHT 11/13/19 06:30 ESR 54 mm/hr (0-20) H 11/12/19 15:29 D-Dimer 0.66 ug/mL (0.00-0.50) H 11/12/19 15:29 Carbonic Acid 0.99 mmol/L (1.05-1.35) L 11/12/19 16:10 HCO3/H2CO3 Ratio 22:1 11/12/19 16:10 ABG pH 7.46 (7.35-7.45) H 11/12/19 16:10 ABG pCO2 32.8 mmHg (35-45) L 11/12/19 16:10 ABG pO2 70.1 mmHg (80-100) L 11/12/19 16:10 ABG HCO3 22.6 mmol/L (20-24) 11/12/19 16:10 ABG Total CO2 23.7 mmol/L (23-27) 11/12/19 16:10 ABG O2 Saturation 95.0 % (94-98) 11/12/19 16:10 ABG Base Excess -0.4 mmol/L 11/12/19 16:10 FiO2 ROOM AIR 11/12/19 16:10 Sodium 134.3 mmol/L (137-145) L 11/13/19 06:30 Potassium 4.6 mmol/L (3.6-5.0) 11/13/19 06:30 Chloride 103 mmol/L (98-107) 11/13/19 06:30 Carbon Dioxide 25 mmol/L (22-30) 11/13/19 06:30 Anion Gap 6 (5-19) 11/13/19 06:30 BUN 15 mg/dL (7-20) 11/13/19 06:30 Creatinine 0.68 mg/dL (0.52-1.25) 11/13/19 06:30 Est GFR ( Amer) > 60 (>60) 11/13/19 06:30 Est GFR (MDRD) Non-Af > 60 (>60) 11/13/19 06:30 Glucose 121 mg/dL (75-110) H 11/13/19 06:30 Lactic Acid 1.5 mmol/L (0.7-2.1) 11/12/19 15:29 Calcium 8.3 mg/dL (8.4-10.2) L 11/13/19 06:30 Phosphorus 2.6 mg/dL (2.5-4.5) 11/13/19 06:30 Magnesium 2.2 mg/dL (1.6-2.3) 11/13/19 06:30 Ferritin 184.00 ng/mL (17.9-464.0) 11/12/19 15:29 Total Bilirubin 0.7 mg/dL (0.2-1.3) 11/13/19 06:30 Direct Bilirubin 0.0 mg/dL (0.0-0.4) 11/13/19 06:30 Neonat Total Bilirubin Not Reportable 11/13/19 06:30 Neonat Direct Bilirubin Not Reportable 11/13/19 06:30 Neonat Indirect Bili Not Reportable 11/13/19 06:30 AST 39 U/L (17-59) 11/13/19 06:30 ALT 68 U/L (<50) H 11/13/19 06:30 Alkaline Phosphatase 88 U/L (38-126) 11/13/19 06:30 C-Reactive Protein 203.2 mg/L (<10.0) H 11/12/19 15:29 C-Reactive Protein Cancelled 11/12/19 15:29 NT-Pro-B Natriuret Pep 50 pg/mL (<125) 11/12/19 15:29 Total Protein 6.4 g/dL (6.3-8.2) 11/13/19 06:30 Albumin 3.2 g/dL (3.5-5.0) L 11/13/19 06:30 Urine Color YELLOW 11/12/19 18:00 Urine Appearance CLEAR 11/12/19 18:00 Urine pH 6.0 (5.0-9.0) 11/12/19 18:00 Ur Specific [place] 1.015 11/12/19 18:00 Urine Protein 30 mg/dL (NEGATIVE) H 11/12/19 18:00 Urine Glucose (UA) >=500 mg/dL (NEGATIVE) H 11/12/19 18:00 Urine Ketones NEGATIVE mg/dL (NEGATIVE) 11/12/19 18:00 Urine Blood NEGATIVE (NEGATIVE) 11/12/19 18:00 Urine Nitrite NEGATIVE (NEGATIVE) 11/12/19 18:00 Urine Bilirubin NEGATIVE (NEGATIVE) 11/12/19 18:00 Urine Urobilinogen 4.0 mg/dL (<2.0) H 11/12/19 18:00 Ur Leukocyte Esterase NEGATIVE (NEGATIVE) 11/12/19 18:00 Urine WBC (Auto) 2 /HPF 11/12/19 18:00 Urine RBC (Auto) 0 /HPF 11/12/19 18:00 Urine Bacteria (Auto) TRACE /HPF 11/12/19 18:00 Urine Mucus (Auto) FEW /LPF 11/12/19 18:00 Urine Ascorbic Acid NEGATIVE (NEGATIVE) 11/12/19 18:00 Influenza A (Rapid) NEGATIVE (NEGATIVE) 11/12/19 18:36 Influenza B (Rapid) NEGATIVE (NEGATIVE) 11/12/19 18:36 SARS-CoV-2 (PCR) POSITIVE (NEGATIVE) A* 11/12/19 16:00 11/12/19 15:29 NT-Pro-B Natriuret Pep 50 Impressions: Chest X-Ray 11/12/19 14:12 IMPRESSION: 1. Low lung volumes limits the examination. Mild prominent interstitial markings in the lungs may represent infiltrates. Correlation suggested. Plan Time Spent: Greater than 30 Minutes Stroke Is this a Stroke Patient?: No Acute Heart Failure - Is this a Heart Failure Patient?: No
[2019-11-14 13:28] VITALS: BP 130/72
== END 2019-11-14 14:24 | disposition home or self-care (01) | DRG 177 ==
LOC: ER 13:53 → EH 18:04 → 5 19:15
PROVIDERS: ADMIT Internal Medicine; ATTEND Internal Medicine
DX: U07.1 COVID-19 (principal); J12.89 Other viral pneumonia; J96.01 Acute respiratory failure with hypoxia; J20.8 Acute bronchitis due to other specified organisms; B96.20 Unspecified Escherichia coli [E. coli] as the cause of diseases classified elsewhere; Z79.52 Long term (current) use of systemic steroids; Z79.899 Other long term (current) drug therapy; Z82.49 Family history of ischemic heart disease and other diseases of the circulatory system
CPT/HCPCS: 36415; 36600; 71045; 80053; 81001; 82728; 82803; 83605; 83735; 83880; 84100; 85025; 85379; 85652; 86140; 87040; 87070; 87077; 87186; 87205; 87635; 87804; 93005; 93010; 96365; 99284; C9803; J0456; J0696; J1650; J3490; J7030; J7060